=== PATIENT | male | born 1995 | race Caucasian/White ===

== ENCOUNTER 2023-03-18 13:41 | Emergency (ER) | payer MEDICAID ==
[~2023-03-18] VITALS: Ht 185.4 cm; Wt 104.3 kg
[2023-03-18 13:53] VITALS: BP_SYST 126; PULSE 99; RESP 18; TEMP 98.1; O2SAT 96
[2023-03-18 16:56] VITALS: BP_SYST 126; PULSE 99; RESP 18; TEMP 98.1; O2SAT 96
== END 2023-03-18 16:56 | disposition home or self-care (01) ==
LOC: SED 13:41
DX: H91.92 Unspecified hearing loss, left ear (principal); H92.02 Otalgia, left ear; H93.12 Tinnitus, left ear; Z88.0 Allergy status to penicillin; Z79.899 Other long term (current) drug therapy
CPT/HCPCS: 99281